=== PATIENT | male | born 1950 | race Caucasian/White ===

== ENCOUNTER → 2020-07-30 | Outpatient (CLI) | payer OTHER ==
[~2020-07-30] MED LIST: MOTRIN800 MG PO; TENORMIN25 MG PO; TRAMADOL HCL50 MG PO
== END | disposition home or self-care (01) ==
LOC: COVID19 12:12
PROVIDERS: ATTEND Family Medicine
DX: Z20.828 Contact with and (suspected) exposure to other viral communicable diseases (principal)

== ENCOUNTER 2023-11-06 09:31 | Emergency (ER) | payer OTHER ==
[~2023-11-06] VITALS: Ht 175.2 cm; Wt 104.3 kg
[2023-11-06 09:48] LABS: BASO # 0.1 10*3/uL (0.0-0.1); BASO % 0.9 % (0.0-1.0); EOS # 0.2 10*3/uL (0.0-0.4); EOS % 2.6 % (1.0-4.0); HEMATOCRIT 48.9 % (42.0-52.0); LYMPH # 2.8 10*3/uL (1.3-4.4); LYMPH % 30.5 % (27.0-41.0); MEAN CELL VOLUME 94.6 fl (80.0-94.0); MEAN CORPUSCULAR HGB CONC 31.7 g/dl (33.0-37.0); MEAN PLATELET VOLUME 9.8 fl (9.6-12.3); MONO # 0.9 10*3/uL (0.1-1.0); MONO % 9.4 % (3.0-9.0); NEUT # 5.2 10*3/uL (2.3-7.9); NEUT % 56.2 % (47.0-73.0); PLATELET COUNT AUTOMATED 240 10*3/uL (130-400); RED BLOOD COUNT 5.17 10*6/uL (4.50-5.90); WHITE BLOOD COUNT 9.2 10*3/uL (4.8-10.8)
[2023-11-06 09:59] LABS: ACT PARTIAL THROMBO TIME 29.3 SECONDS (20.0-32.1)
[2023-11-06 10:18] LABS: ALKALINE PHOSPHATASE 75 U/L (46-116); BUN 14 mg/dl (9-23); CHLORIDE 105 mmol/L (98-107); LIPASE 34 U/L (12-53); POTASSIUM 4.2 mmol/L (3.4-5.1); SGPT/ALT 60 U/L (5-49); TOTAL PROTEIN 7.6 gm/dL (6.0-8.0)
[2023-11-06] MEDS ORDERED: METFORMIN HYDR500 MG PO (12:22)
[2023-11-06] MEDS ORDERED: GADOTERATE MEGLUMINE 10 MMOL/20 ML VIAL IV ONE (13:53)
[2023-11-06] MEDS ORDERED: LEVETIRACETAM IN NACL (ISO-OS) 100 ML IV ONE (17:05)
[2023-11-06] MEDS ORDERED: Dexamethasone Sodium Phospha 20 MG/5 ML VIAL IV ONE (17:05)
[2023-11-06] MEDS ORDERED: LEVETIRACETAM 500 MG in SODIUM CHLORIDE 0.9% 100 ML IV ONE (17:15)
[2023-11-07] MEDS ORDERED: ENALAPRIL10 MG PO (15:14)
[2023-11-07] MEDS ORDERED: GLUCOTROL XL2.5 MG PO (15:14)
[2023-11-07] MEDS ORDERED: LIPITOR10 MG PO (15:15)
[2023-11-07] MEDS ORDERED: ATENOLOL 50 MG TAB PO ONE (15:20)
== END 2023-11-07 18:05 | disposition short-term general hospital (02) ==
LOC: ED 09:31
PROVIDERS: Emergency Medicine
DX: G93.41 Metabolic encephalopathy (principal); G93.9 Disorder of brain, unspecified; Z79.899 Other long term (current) drug therapy

== ENCOUNTER → 2023-11-24 | Outpatient (CLI) | payer OTHER ==
[~2023-11-24] MED LIST changes: +ENALAPRIL10 MG PO; +GADOTERATE MEGLUMINE 10 MMOL/20 ML VIAL IV ONE; +GLUCOTROL XL2.5 MG PO; +LIPITOR10 MG PO; +METFORMIN HYDR500 MG PO
== END | disposition home or self-care (01) ==
LOC: MRI 13:01
PROVIDERS: ATTEND Family Medicine
DX: D43.2 Neoplasm of uncertain behavior of brain, unspecified (principal)